=== PATIENT | female | born 1990 | race Caucasian/White ===

== ENCOUNTER 2020-03-17 03:49 | Emergency (ER) | payer OTHER, SELFPAY ==
--- NOTE | 2020-03-17 04:09 | ED.GENADULT ---
HPI - General Adult General Chief complaint: Vaginal Bleeding Stated complaint: urogenital-female Time Seen by Provider: 03/17/20 04:01 Source: RN notes reviewed History of Present Illness HPI narrative: Patient presents emergency department from home for vaginal bleeding. Patient states she is approximately 14 weeks and 5 days she is G2, P1 and is followed by the [facility] in [place] for [facility]OLOG[facility]. States she has had several ultrasounds showing a live intrauterine . Patient states that this evening she began to have some bright red blood noted vaginally. She states associated with lower abdominal pain described as cramping. She denies any fevers or chills chest pain shortness of breath or any other symptoms Related Data Allergies Allergy/AdvReac Type Severity Reaction Status Date / Time No Known Allergies Allergy Verified 03/17/20 04:19 Review of Systems Review of Systems: Narrative: Gen.: Denies fevers or chills ENT: Denies congestion Respiratory: Denies shortness of breath or cough CV: Denies chest pain or palpitations GI: Reports lower abdominal cramping denies nausea, emesis or diarrhea see HPI Musculoskeletal: Denies back pain or muscle pain Neuro: Denies numbness, tingling, weakness or focal weakness Skin: Denies rash Except as documented, all other systems reviewed and negative [facility] Past Medical History Medical History (Updated 03/17/20 @ 06:07 by Pato Wang DO) Patient denies significant medical history Social History Social History (Updated 03/17/20 @ 04:10 by Pato Wang DO) Smoking status: Never smoker Exam Narrative: Exam Narrative: APPEARANCE: No acute distress, nontoxic, resting in bed EYES: EOMI HEENT: Normocephalic, atraumatic, OMM RESPIRATORY: No respiratory distress Clear to auscultation bilaterally with no rhonchi wheezing or rales. CARDIOVASCULAR: Regular rate and rhythm without murmurs rubs or gallops. ABDOMINAL: Soft, nontender, nondistended, no rebound or guarding Pelvic: Normal external exam, small amount of dark red blood in vaginal canal without clots, cervix closed MUSCULOSKELETAl: Moves all extremities. No clubbing, cyanosis or edema. NEURO: Awake and alert. Following commands, speech normal, no focal deficits SKIN:: Warm, dry. No rashes lesions or abrasions PSYCHIATRIC: Normal affect/mood, Course Course Emergency Course: Bedside ultrasound was used that shows a living intrauterine with a heart rate approximately 150 bpm Attempted to contact patient's PSYCHOLOGIST [facility]PERIMENT[facility] office is closed will refer patient to call the office in the a.m. Discussed with patient results of workup and diagnosis. Discussed need for follow-up with primary care, proper use of medication, and reasons to return to the emergency department. Patient understands and agrees to current treatment plan Vital Signs Vital signs: Vital Signs Temperature 98.4 F 03/17/20 04:11 Pulse Rate 110 H 03/17/20 04:11 Respiratory Rate 18 03/17/20 04:11 Blood Pressure 142/92 H 03/17/20 04:11 Pulse Oximetry 99 03/17/20 04:11 Temperature 98.4 F 03/17/20 04:11 Pulse Rate 110 H 03/17/20 04:11 Respiratory Rate 18 03/17/20 04:11 Blood Pressure 142/92 H 03/17/20 04:11 Pulse Oximetry 99 03/17/20 04:11 Medical Decision Making Vital Signs Vital Signs: Vital Signs Temperature 98.4 F 03/17/20 04:11 Pulse Rate 110 H 03/17/20 04:11 Respiratory Rate 18 03/17/20 04:11 Blood Pressure 142/92 H 03/17/20 04:11 Pulse Oximetry 99 03/17/20 04:11 Temperature 98.4 F 03/17/20 04:11 Pulse Rate 110 H 03/17/20 04:11 Respiratory Rate 18 03/17/20 04:11 Blood Pressure 142/92 H 03/17/20 04:11 Pulse Oximetry 99 03/17/20 04:11 Lab Data Result diagrams: 03/17/20 04:20 03/17/20 04:20 Labs: Lab Results 03/17/20 03/17/20 03/17/20 Range/Units 04:20 04:20 04:20 WBC 10.4 H (4.5-10.0) K/mm3 RBC 4.1
[2020-03-17 04:11] VITALS: BP 142/92; PULSE 110; RESP 18; TEMP 36.9; O2SAT 99
[2020-03-17] MEDS: SODIUM CHLORIDE 0.9% IV 1,000 ML 999 ML IV CONT (04:44)
[2020-03-17 04:58] LABS: Basophils Absolute Auto 0.1 K/mm3 (0.0-0.1); Basophils Percent Auto 0.6 % (0.2-1.2); Eosinophils Absolute Auto 0.1 K/mm3 (0-0.3); Eosinophils Percent Auto 1.3 % (0-4.4); Hematocrit 36.7 % (37.0-47.0); Immature Granulocyte Absolute 0.04 K/mm3 (0.00-0.031); Immature Granulocyte Percent A 0.4 % (0-0.5); Lymphocytes Absolute Auto 1.67 K/mm3 (0.9-3.2); Lymphocytes Percent Auto 16.1 % (18.3-44.2); Mean Corpuscular HGB Conc 35.4 g/dl (32-36); Mean Corpuscular Hemoglobin 31.1 pg (26-34); Mean Corpuscular Volume 87.8 fl (80-100); Mean Platelet Volume 10.2 fl (7.4-10.4); Monocytes Absolute Auto 0.6 K/mm3 (0.1-0.6); Monocytes Percent Auto 6.2 % (2.6-8.5); Neutrophils Absolute Auto 7.8 K/mm3 (1.3-6.7); Neutrophils Percent Auto 75.4 % (45.5-73.1); Platelet Count Result 273 k/mm3 (150-375); Red Blood Count 4.18 M/mm3 (4.2-5.4); Red Cell Distribution Width 12.9 % (11.5-14.5); White Blood Count 10.4 K/mm3 (4.5-10.0)
[2020-03-17 05:16] LABS: Anion Gap 9 mmol/L (8-16); Blood Urea Nitrogen 4 mg/dL (7-17); Calcium 9.7 mg/dL (8.4-10.2); Carbon Dioxide 25 mmol/L (22-30); Chloride 104 mmol/L (98-107); Estimated CRCL calculation 147 ml/min; Estimated Glomerular Filt Rate > 60; Glucose 91 mg/dL (65-105); Potassium 3.8 mmol/L (3.4-5.0); Sodium 138 mmol/L (137-145)
== END 2020-03-17 06:16 | disposition home or self-care (01) ==
PROVIDERS: Emergency Provider Emergency Medicine
DX: O20.0 Threatened abortion (principal); Z3A.14 14 weeks gestation of pregnancy
CPT/HCPCS: 36415; 80048; 85025; 85461; 96360; 99283; J7030